=== PATIENT | male | born 1965 | race Caucasian/White ===

== ENCOUNTER 2020-09-11 15:21 | Emergency (ER) | payer SELFPAY ==
[~2020-09-11] VITALS: Ht 188 cm; Wt 118.0 kg
[2020-09-11 15:23] VITALS: BP 143/108
[2020-09-11] MEDS ORDERED: SODIUM CHLORIDE FLUSH 10ML SYR IVF ONE (16:00)
[2020-09-11] MEDS ORDERED: SODIUM CHLORIDE 0.9% 1,000ML IVBOLUS ONE (16:00)
[2020-09-11] MEDS ORDERED: ONDANSETRON 2MG/ML, 2ML IVPush ONE (16:00)
[2020-09-11] MEDS ORDERED: HYDROmorphone 1 MG/ML, 1ML INJ IV ONE (16:00)
[2020-09-11] MEDS ORDERED: ONDANSETRON 2MG/ML, 2ML ONE (16:03)
[2020-09-11] MEDS ORDERED: HYDROmorphone 1 MG/ML, 1ML INJ ONE (16:03)
[2020-09-11] MEDS ORDERED: MAALOX/HYOSCYAMINE/LIDOCAINE 45 ML BTL ONE (16:03)
--- NOTE | 2020-09-11 16:09 | NUR ---
PT WANTS PAIN MEDS PRIOR TO XRAY
[2020-09-11 16:18] LABS: BASOPHILS % (AUTO) 0 % (0-1); EOSINOPHILS % (AUTO) 0 % (1-7); LYMPHOCYTES % (AUTO) 10 % (22-44); MEAN CORPUSCULAR HEMOGLOBIN 32.4 pg (27.5-34.5); MEAN CORPUSCULAR HGB CONC 35.6 g/dL (33.2-36.2); MEAN PLATELET VOLUME 8.3 fL (7.4-10.4); MONOCYTES % (AUTO) 3 % (2-9); NEUTROPHILS % (AUTO) 87 % (42-75); PLATELET COUNT 341 x10^3/uL (130-400); RED BLOOD COUNT 5.14 x10^6/uL (4.38-5.82); RED CELL DISTRIBUTION WIDTH 12.8 % (9.4-14.8)
--- NOTE | 2020-09-11 16:18 | NUR ---
PT HAS CO LOWER ABDOMINAL PAIN STARTING THIS AM. PT STATES IT IS ULCERATIVE COLITIES. N/V. DENIES CP. SHARP PAIN. PT MOANING. IV LABS, MEDICATED PER ORDERS.
[2020-09-11 16:30] LABS: ALANINE AMINOTRANSFERASE 59 U/L (12-78); ALBUMIN 4.4 g/dL (3.4-5.0); ANION GAP 10 mmol/L (5-15); CALCIUM 9.6 mg/dL (8.5-10.1); CHLORIDE 105 mmol/L (98-107); CREATININE 1.05 mg/dL (0.7-1.3)
[2020-09-11 16:32] LABS: ALKALINE PHOSPHATASE 115 U/L (45-117); BILIRUBIN,TOTAL 1.3 mg/dL (0.2-1.0); TOTAL PROTEIN 8.1 g/dL (6.4-8.2)
--- NOTE | 2020-09-11 17:08 | NUR ---
PT PAIN IS BETTER, NO LONGER MOANING. . SITTING ON GURNEY. AWARE OF NEED OF UA.
--- NOTE | 2020-09-11 17:15 | NUR ---
Patient/Caregiver given discharge instructions and they have confirmed that they understand the instructions. Patient ambulatory with steady gait.
== END 2020-09-11 17:42 | disposition home or self-care (01) ==
LOC: ED 15:51
DX: K29.00 Acute gastritis without bleeding (principal); R11.2 Nausea with vomiting, unspecified; Z90.89 Acquired absence of other organs
CPT/HCPCS: 36415; 80053; 83690; 85025; 96374; 96375; 99284; J1170; J2405; J7030; 99285